=== PATIENT | male | born 1975 | race Caucasian/White ===

== ENCOUNTER 2023-07-19 15:21 | Emergency (ER) | payer BC ==
[2023-07-19 15:36] VITALS: RESP 20; TEMP 97; O2SAT 97
--- NOTE | 2023-07-19 15:55 | ERPHSYRPT ---
- History of Present Illness Time Seen by Provider: 07/19/23 15:45 Historian: patient, family Exam Limitations: no limitations Patient Subjective Stated Complaint: Pt states "I was at work and was leaning over a cooler and felt what felt like a rubber band snap in my belly button area and now it really really hurts to move" Triage Nursing Assessment: Pt presented alert and oriented X 3, skin pwd. Pt ambulates with a hunched over gait holding his abodmen. Pt winces when he moves and will occasionally moan. Physician History: This is a 47-year-old white male patient of Dr. Riley who was at work today and leaned over a cooler to do some work and felt like a rubber band was stretching and then snapped. It occurred around the umbilical area and now it hurts to move or palpate. Patient has had bilateral inguinal hernia repairs with mesh in the past he is also had an abdominal wall hernia repair without mesh in the past which is just above and to the right of the umbilicus. He has had no nausea vomiting symptoms just pain when he is moving since this occurred. Timing/Duration: today Activities at Onset: activity Quality: sharpness, stabbing Abdominal Pain Onset Location: periumbilical Pain Radiation: no radiation Severity of Pain-Max: moderate Severity of Pain-Current: moderate Modifying Factors: Improves With: movement, palpation (Worsens worsens) Associated Symptoms: denies symptoms Previous symptoms: no prior history, no recent treatment Allergies/Adverse Reactions: acetaminophen [From Vicodin] Allergy (Severe, Verified 07/19/23 15:37) codeine Allergy (Severe, Verified 07/19/23 15:37) hydrocodone [From Vicodin] Allergy (Severe, Verified 07/19/23 15:37) hydromorphone [From Dilaudid] Allergy (Severe, Verified 07/19/23 15:37) Penicillins Allergy (Severe, Verified 07/19/23 15:37) Home Medications: Telmisartan [Micardis] 40 mg PO DAILY 07/19/23 [History] Hx Tetanus, Diphtheria Vaccination/Date Given: Yes Hx Influenza Vaccination/Date Given: No Hx Pneumococcal Vaccination/Date Given: No Immunizations Up to Date: Yes Travel Risk - International Travel Have you traveled outside of the country in past 3 weeks: No - Coronavirus Screening Are you exhibiting any of the following symptoms?: No Close contact with a COVID-19 positive Pt in past 14-21 Days: No - Vaccine Status Have you recieved a Covid-19 vaccination: No - Review of Systems Constitutional: No Symptoms Eyes: No Symptoms Ears, Nose, & Throat: No Symptoms Respiratory: No Symptoms Cardiac: No Symptoms Abdominal/Gastrointestinal: Abdominal Pain (Central periumbilical region with movement and palpation) Genitourinary Symptoms: No Symptoms Musculoskeletal: No Symptoms Skin: No Symptoms Neurological: No Symptoms Psychological: No Symptoms Endocrine: No Symptoms Hematologic/Lymphatic: No Symptoms Immunological/Allergic: No Symptoms All Other Systems: Reviewed and Negative - Past Medical History Pertinent Past Medical History: Yes Cardiac History: Hypertension - Past Surgical History Past Surgical History: Yes Other Surgical History: hernia. cyst removed from right flank - Social History Smoking Status: Former smoker Exposure to second hand smoke: No Drug Use: none Patient Lives Alone: No Significant Family History: no pertinent family hx - Nursing Vital Signs Nursing Vital Signs: Initial Vital Signs Temperature 97.0 F 07/19/23 15:30 Pulse Rate 65 07/19/23 15:30 Respiratory Rate 20 07/19/23 15:30 Blood Pressure 137/81 07/19/23 15:30 O2 Sat by Pulse Oximetry 97 07/19/23 15:30 Pain Scale Pain Intensity 5 - Physical Exam General Appearance: no apparent distress, alert, anxiety Eye Exam: PERRL/EOMI, eyes nml inspection Ears, Nose, Throat Exam: normal ENT inspection, moist mucous membranes Neck Exam: normal inspection, non-tender, supple, full range of motion Respiratory Exam: airway intact, No chest tenderness, No respiratory distress Gastrointestinal/Abdomen Exam: tenderness (Periumbilical region with movement), guarding (Periumbilical region with palpation and movement), rebound (Periumbilical region) Rectal Exam: not done Back Exam: normal inspection, normal range of motion, No CVA tenderness, No vertebral tenderness Extremity Exam: normal inspection, normal range of motion, pelvis stable Neurologic Exam: alert, oriented x 3, cooperative, trade analyst II-XII nml as tested, normal mood/affect, nml cerebellar function, nml station & gait, sensation nml Skin Exam: normal color, warm, dry Lymphatic Exam: No adenopathy SpO2 Interpretation: normal SpO2: 97 O2 Delivery: Room Air - Course Nursing assessment & vital signs reviewed: Yes Ordered Tests: Active Orders 24 hr Category Date Time Status ABDOMEN AND PELVIS W/0 CONTRAS [CT] Stat Exams 07/19/23 15:39 Completed - Progress Progress Note: 07/19/23 15:54 This patient's medical issue is 1 of low complexity. Level complex in the work- up performed is based on review of the patient's past medical history, review the patient's medication list, review the patient's drug allergy list, history of present illness and physical findings on examination. The work-up in this patient will initially be CT scan of the abdomen pelvis without contrast. 07/19/23 17:06 CT scan of the abdomen pelvis without contrast was interpreted by the radiologist and I reviewed the impression. The impression reads no ventral or inguinal hernia present. There is mild/early diverticulitis at the junction of descending and sigmoid colon. There is a normal appendix. There is no evidence of free air or free fluid. Counseled pt/family regarding: diagnosis, need for follow-up, rad results Medical Desision Making - Independent Historian Additional History obtained from: Spouse - Diagnostic Testing Diagnostic test were ordered, analyzed, and reviewed by me: Yes Radiological Interpretation: Reviewed by me, Teleradiologist Report - Risk of complications The pt has a mod risk of morbidity or mortality based on: Need for prescription drug management - Departure Departure Disposition: Home Clinical Impression: Sigmoid diverticulitis, Umbilical hernia Condition: Stable Critical Care Time: No Referrals: INGRID RILEY MD [Primary Care Provider] - Follow up/PCP as directed Additional Instructions: Use your usual pain medicine that you take for pain control. Take your antibiotics as prescribed. Call your primary care provider tomorrow, 07/20/2023 to make arranges for follow-up appointment and further evaluation management in the next 3 to 5 days. Prescriptions: Ciprofloxacin [Cipro 500 MG] 500 mg PO BID #14 tablet Metronidazole 500 mg [Flagyl 500 MG] 500 mg PO TID #21 tablet
[2023-07-19 16:48] VITALS: BP 108/75; PULSE 63
--- NOTE | 2023-07-19 16:49 | XRAY ---
Indication: Periumbilical pain. Multiple contiguous axial images obtained through the abdomen and pelvis without contrast. Comparison: None Lung bases demonstrates a few bibasilar/right infrahilar calcified granulomas and mild dependent atelectasis. Heart not enlarged. Noncontrasted stomach and bowel loops appear nonobstructed with normal appendix. Diffuse scattered colonic diverticulosis. Junction descending and sigmoid demonstrates minimal pericolonic stranding favoring diverticulitis. No free fluid/air. Remaining liver, gallbladder, pancreas, spleen, adrenal glands, kidneys, ureters, bladder, and aorta are unremarkable for noncontrast exam. Osseous structures intact with moderate L5-S1 degenerative disc disease and bilateral L5 spondylolysis with 5-6 mm anterolisthesis. No ventral or inguinal hernias. Impression: 1. Diffuse colonic diverticulosis. Mild/early diverticulitis junction descending and sigmoid colon. No free fluid/air. 2. Incidental chronic bony findings and old granulomatous disease.
[2023-07-19] MEDS ORDERED: Flagyl 500 MG PO ONE (17:11)
[2023-07-19] MEDS ORDERED: Levofloxacin 500 MG Tablet PO ONE (17:11)
[2023-07-19] MEDS ORDERED: Levofloxacin 500 MG Tablet ONE (17:16)
[2023-07-19] MEDS ORDERED: Flagyl 500 MG ONE (17:16)
== END 2023-07-19 18:01 | disposition home or self-care (01) ==
LOC: ED 15:21
DX: K42.9 Umbilical hernia without obstruction or gangrene (principal); K57.32 Diverticulitis of large intestine without perforation or abscess without bleeding; I10 Essential (primary) hypertension; Z79.899 Other long term (current) drug therapy; Z28.310 Unvaccinated for COVID-19
CPT/HCPCS: 74176; 99283; A9270-GY

== ENCOUNTER 2023-10-29 11:23 | Day surgery (SDC) | payer BC, OTHER ==
--- NOTE | 2023-10-29 10:17 | HP ---
DATE OF SURGERY: 10/29/2023 HISTORY OF PRESENT ILLNESS: The patient is a 47-year-old with bulge, pinching pain since going to work. PAST MEDICAL HISTORY: Hypertension. History of bronchitis and pneumonia in the past. PAST SURGICAL HISTORY: Cyst removed from his back. Inguinal hernia repair in the past. MEDICATIONS: Aspirin, Telmisartan. ALLERGIES: CODEINE. DILAUDID. PENICILLIN. VICODIN. FAMILY HISTORY: Hypertension. Skin cancer. SOCIAL HISTORY: No smoking. Occasional alcohol use. REVIEW OF SYSTEMS: Twelve systems reviewed. No chest pain or palpitations. Other systems negative or noncontributory as above and per preadmission questionnaire. PHYSICAL EXAMINATION: Height 5 feet 4 inches. BMI 28. GENERAL: No acute distress. HEENT: Sclerae nonicteric. EOMI. Oral mucous membranes moist. NECK: No JVD. CHEST: Equal excursion, nonlabored breathing. CVS: Regular rate and rhythm. ABDOMEN: Soft. Area consistent with hernia with incarcerated fat. EXTREMITIES: No cyanosis or edema. NEURO: Alert, oriented, moving extremities symmetrically. PSYCH: Appropriate mood and affect. SKIN: Dry. IMPRESSION: Ventral hernia with some incarcerated fat. I recommend repair. Risks and benefits explained in detail including but not limited to bleeding or infection, risk of bowel injury or perforation, risk of blood vessel issues or injury, risk of mesh infection possibly requiring removal. Risk of scar formation possibly causing bowel obstruction, risk of ileus, risk of aches, pains, burning or numbness possibly chronic in nature. Risk of adhesion or scar formation. Risk of mesh fracture or failure possibly creating issue with viscera or other structures, ongoing morbidity/mortality, possibly requiring other procedures. Risk of anesthesia, deep venous thrombosis, pulmonary embolism, pneumonia. Risk of hernia recurrence but not limited to. He understands. He had originally been scheduled in the past as a Worker Compensation case procedure. Discussed options minimally invasive versus open repair. Will proceed with laparoscopic-assisted repair of incarcerated ventral hernia with mesh possible open.
[~2023-10-29 11:23] MED LIST: Sensorcaine 0.25% 10 ML ONE
[2023-10-29] MEDS ORDERED: Lactated Ringers 1,000 ML IV ONE ×2 (11:39→13:52)
[2023-10-29] MEDS ORDERED: CEFAZOLIN 2 GM-D5W BAG** 2 GM/50 ML ML IV ONE (11:39)
[2023-10-29] MEDS: Lactated Ringers 1,000 ML IV SCH (11:45)
[2023-10-29] MEDS: CEFAZOLIN 2 GM-D5W BAG** 2 GM/50 ML ML IV SCH (11:45)
[2023-10-29] MEDS ORDERED: DIPRIVAN 200 MG/20 ML IV ONE (12:46)
[2023-10-29] MEDS ORDERED: TORAdol 30 mg Injection ONE (12:49)
[2023-10-29] MEDS ORDERED: Xylocaine-Mpf 2% 5 Ml Vial ONE (12:49)
[2023-10-29] MEDS ORDERED: Zofran 4 MG/2 ML VIAL ONE ×2 (12:49→15:57)
[2023-10-29] MEDS ORDERED: Decadron 4 MG INJ ONE ×4 (12:49→15:23)
[2023-10-29] MEDS ORDERED: Quelicin Fliptop 200 MG/10 ML ONE (12:51)
[2023-10-29] MEDS ORDERED: SUBLIMAZE 100 MCG/2 ML ONE ×3 (12:52→15:45)
[2023-10-29] MEDS ORDERED: Versed 2 MG/2 ML Injection ONE (12:52)
[2023-10-29] MEDS ORDERED: Zemuron 100 MG/10 ML ONE ×2 (13:04→13:51)
[2023-10-29] MEDS ORDERED: BRIDION 200MG/2ML IV ONE (13:10)
[2023-10-29] MEDS ORDERED: Ephedrine Sulfate 50 MG/ML ONE (14:01)
[2023-10-29] MEDS ORDERED: Naropin 0.5% 30 ML VIAL ONE (14:28)
[2023-10-29] MEDS ORDERED: MORPHINE SULFATE 2 MG INJ ONE ×4 (15:56→16:35)
[2023-10-29] MEDS ORDERED: Transderm Scop 1.5MG Patch ONE (16:25)
[2023-10-29 17:47] VITALS: O2SAT 96
[2023-10-29 17:48] VITALS: RESP 18
[2023-10-29 17:51] VITALS: BP 113/78; PULSE 66; TEMP 98
--- NOTE | 2023-10-30 08:38 | OP ---
SURGERY DATE/TIME: 10/29/2023 1319 PREOPERATIVE DIAGNOSIS: Incarcerated ventral hernia. POSTOPERATIVE DIAGNOSIS: Incarcerated ventral hernia. PROCEDURE: Laparoscopic-assisted repair of incarcerated ventral hernia (approximately 3.5 cm) with mesh. SURGEON: Dr. Zeferino Mabry. ANESTHESIA: General. ESTIMATED BLOOD LOSS: Minimal. INDICATIONS: As noted above. Risks and benefits explained in detail and not limited to and consent obtained. The site had been confirmed with the patient in the preoperative holding area. DESCRIPTION OF PROCEDURE AND FINDINGS: The patient is taken to the operating room. General anesthesia induced. The patient prepped and draped in usual sterile fashion. After official time out and no disagreement with planned procedure, a transverse incision made left upper quadrant. Fascia grasped and pulled upwards. Veress needle inserted and tested with saline. Pneumoperitoneum accomplished opening pressure 0 to 15. A 5 mm bladeless port and camera were inserted without difficulty. Right lower lateral 5 mm port and right lateral mid abdomen 5 mm port under direct vision of the camera. There is no evidence of any intraabdominal issue secondary to trocar insertion. The patient had prior epigastric ventral hernia when he was a child and that site looked okay. He had incarcerated preperitoneal fat and omentum up in this symptomatic hernia. Preperitoneal space is carefully entered. Dissection carried down circumferentially around the hernia site. Incarcerated fat reduced out of the hernia site. Using a spinal needle the defect measured in vivo was about 3.5 cm. It was felt it warranted repair with suture and mesh. At this point it was felt the most appropriate size mesh available is [address] mesh this is carefully placed on the abdomen four quadrant margins are made and put some transfascial sutures. 0 Ethibond was placed on the mesh with some 0 Vicryl. The strap was then removed. A transverse incision was made above the defect. Dissection carried around the defect down to the level of the fascia with some #1 Vicryl transfascial sutures temporary placed and tied to bring the fascia back to the midline prior to placing the mesh. These were temporarily tagged. The port was placed through the defect. The mesh is carefully wedged and easily placed through the port in the abdomen. The port was removed. The pressure is turned down to 8. The transfascial sutures #1 Vicryl were secured bringing the fascial defect back to the midline, centering the Vicryl on the center of the mesh is then used to pull the mesh up and center it. The four quadrant 0 Ethibonds were then through four separate stab wounds were pulled up and tied transfascially with 0 Ethibond in a tension-free manner with the pressure down to 8. Nice and flat mesh. It did overlap in all directions. The CapTure Tacker was then used to tack about 1 cm apart around the periphery with one tack placed in the middle. The mesh was nice and flat in tension-free fashion. There was no evidence of any issues with the dissection or port placement. Pneumoperitoneum decompressed. The subcu with transfascial #[address] were tacked down with some 3-0. Skin incision closed with 4-0 Vicryl. Anesthesia applied tap blocks. Steri-Strips and sterile dressing applied. He was given an abdominal binder. The patient tolerated the procedure well. There were no immediate complications. Findings were discussed with the family out in the waiting area. He is to stay away from heavy pushing and pulling for six to eight weeks postoperatively. I will see him in the office next week. He was transferred to the recovery room in stable condition.
== END 2023-10-29 17:32 | disposition home or self-care (01) ==
LOC: SDC 11:23
PROVIDERS: ATTEND Surgery
DX: K43.6 Other and unspecified ventral hernia with obstruction, without gangrene (principal)
CPT/HCPCS: 87086; J0330; J0690; J1100; J1885; J2250; J2270; J2405; J2704; J2795; J3010; A9270-GY